=== PATIENT | male | born 1935 | race Two or more races ===

== ENCOUNTER → 2017-09-30 | Emergency (ER) | payer OTHER ==
[~2017-09-30] VITALS: Ht 177.8 cm; Wt 99.8 kg
[~2017-09-30] MED LIST: ARICEPT10 MG; ATENOLOL50 MG; FORTAMET500 MG PO; NAMENDA10 MG; PLAVIX75 MG; PNEU16DI2; ZOCOR40 MG
== END | disposition home or self-care (01) ==
LOC: ER 08:15
DX: M54.5 Low back pain (principal); M54.89 Other dorsalgia

== ENCOUNTER 2018-10-03 08:46 | Emergency (ER) | payer OTHER ==
[~2018-10-03] VITALS: Ht 152.4 cm; Wt 102.1 kg
== END 2018-10-03 14:27 | disposition home or self-care (01) ==
LOC: ER 08:46
DX: G51.0 Bell's palsy (principal)

== ENCOUNTER 2019-04-25 09:24 | Emergency (ER) | payer OTHER ==
[~2019-04-25] VITALS: Ht 170.2 cm; Wt 99.8 kg
[2019-04-25] MEDS ORDERED: ZESTRIL5 MG (09:33)
[2019-04-25] MEDS ORDERED: NORVASC5 MG (09:33)
[2019-04-25] MEDS ORDERED: TOPROL XL50 M1 (09:33)
== END 2019-04-25 10:22 | disposition home or self-care (01) ==
LOC: ER 09:24
DX: L02.213 Cutaneous abscess of chest wall (principal); L72.3 Sebaceous cyst; B96.89 Other specified bacterial agents as the cause of diseases classified elsewhere